=== PATIENT | female | born 1955 | race Caucasian/White ===

== ENCOUNTER 2023-12-10 07:00 | Outpatient (RCR) | payer MEDICARE, OTHER, SELFPAY | END 2023-12-10 08:41 | disposition home or self-care (01) | LOC: HO.PT 07:00 | PROVIDERS: PCP Family Medicine; Visit Provider Family Medicine | DX: M25.552 Pain in left hip (principal) | CPT/HCPCS: 97110; 97140; 97161; 97530 ==